=== PATIENT | male | born 1975 | race Caucasian/White ===

== ENCOUNTER 2018-04-16 22:23 | Emergency (ER) | payer OTHER ==
[2018-04-16] MEDS ORDERED: NS 1,000 ML IV ONE (23:06)
[2018-04-16 23:25] LABS: PLATELET COUNT 200 10^3/uL (150-400)
[2018-04-16] MEDS ORDERED: HYDROmorphONE/DILAUDID 1 MG/ML INJ ONE (23:39)
[2018-04-16] MEDS ORDERED: HYDROmorphONE/DILAUDID 2 MG/ML INJ IVP ONE (23:51)
--- NOTE | 2018-04-17 02:38 | EDPHY ---
H & P Stated Complaint: RUQ abd pain and vomiting Time Seen by Provider: 04/16/18 22:50 HPI/ROS: Chief Complaint: Abdominal pain HPI: 43-year-old male presenting with worsening right upper quadrant abdominal pain for the last 2 days. He has had some nausea vomiting. Did take some Pepto -Bismol with no relief. Did have some black stools after taking the Pepto- Bismol. No fevers or chills. Does not have a history of similar episodes in the past. No chest pain or shortness of breath. Pain is about a 6/10. There are no aggravating or alleviating factors. ROS: 10 systems were reviewed and were negative except those elements noted in the HPI. Social History: No smoking Family History: non-contributory Physical Exam: Gen: Awake, Alert, No Distress HEENT: Nose: no rhinorrhea Eyes: PERRLA, EOMI Mouth: Moist mucosa Neck: Supple, no JVD Chest: nontender, lungs clear to auscultation Heart: S1, S2 normal, no murmur Abd: Soft, moderate epigastric with moderate right upper quadrant tenderness, no guarding Back: no CVA tenderness, no midline tenderness Ext: no edema, non-tender Skin: no rash Neuro: CN II-XII intact, Sensation grossly intact, Strength 5/5 in bilateral upper and lower extremities - Personal History Current Tetanus/Diphtheria Vaccine: Yes Current Tetanus Diphtheria and Acellular Pertussis (TDAP): Yes - Medical/Surgical History Hx Asthma: No Hx Chronic Respiratory Disease: No Hx Diabetes: No Hx Cardiac Disease: No Hx Renal Disease: No Hx Cirrhosis: No Hx Alcoholism: No Hx HIV/AIDS: No Hx Splenectomy or Spleen Trauma: No Other PMH: HTN - Social History Smoking Status: Current every day smoker Constitutional: Initial Vital Signs Temperature (C) 37.2 C 04/16/18 22:28 Heart Rate 73 04/16/18 22:28 Respiratory Rate 16 04/16/18 22:28 Blood Pressure 172/110 H 04/16/18 22:28 O2 Sat (%) 95 04/16/18 22:28 O2 Delivery Mode Nasal Cannula O2 (L/minute) 2 Allergies/Adverse Reactions: No Known Allergies Allergy (Unverified 04/16/18 22:30) Home Medications: Medication Instructions Recorded Oroxadin 04/16/18 Pantoprazole Sodium 04/16/18 Zyloprim 04/16/18 Medical Decision Making - Diagnostics Imaging Results: Right upper quadrant ultrasound is suggestive of pancreatitis with peripancreatic fluid adjacent to the pancreatic head with hepatomegaly with fatty infiltration. Study interpreted by Dr. Jones, dressed Radiology. ED Course/Re-evaluation: 43-year-old male with epigastric abdominal pain. Modest elevation in his lipase. Remainder of his laboratory evaluations unremarkable. Ultrasound consistent with pancreatitis. Patient is improved after IV analgesia and antiemetics and fluids. Will discharge with a bland diet, follow up with primary care. He did report some melena however I think this is secondary to the Pepto-Bismol. - Data Points Laboratory Results: Laboratory Results 04/16/18 23:15 04/16/18 23:15 04/16/18 04/16/18 23:15 23:15 WBC 9.87 10^3/uL H 10^3/uL (3.80-9.50) RBC 4.94 10^6/uL 10^6/uL (4.40-6.38) Hgb 15.4 g/dL g/dL (13.7-17.5) Hct 42.8 % % (40.0-51.0) MCV 86.6 fL fL (81.5-99.8) MCH 31.2 pg pg (27.9-34.1) MCHC 36.0 g/dL g/dL (32.4-36.7) RDW 12.6 % % (11.5-15.2) Plt Count 200 10^3/uL 10^3/uL (150-400) MPV 10.3 fL fL (8.7-11.7) Neut % (Auto) 61.2 % % (39.3-74.2) Lymph % (Auto) 27.3 % % (15.0-45.0) [place] % (Auto) 8.2 % % (4.5-13.0) Eos % (Auto) 2.5 % % (0.6-7.6) Baso % (Auto) 0.4 % % (0.3-1.7) Nucleat RBC Rel Count 0.0 % % (0.0-0.2) Absolute Neuts (auto) 6.04 10^3/uL 10^3/uL (1.70-6.50) Absolute Lymphs (auto) 2.69 10^3/uL 10^3/uL (1.00-3.00) Absolute Monos (auto) 0.81 10^3/uL H 10^3/uL (0.30-0.80) Absolute Eos (auto) 0.25 10^3/uL 10^3/uL (0.03-0.40) Absolute Basos (auto) 0.04 10^3/uL 10^3/uL (0.02-0.10) Absolute Nucleated RBC 0.00 10^3/uL 10^3/uL (0-0.01) Immature Gran % 0.4 % % (0.0-1.1) Immature Gran # 0.04 10^3/uL 10^3/uL (0.00-0.10) Sodium 141 mEq/L mEq/L (135-145) Potassium 3.8 mEq/L mEq/L (3.5-5.2) Chloride 104 mEq/L mEq/L (97-110) Carbon Dioxide 25 mEq/l mEq/l (22-31) Anion Gap 12 mEq/L mEq/L (6-14) BUN 13 mg/dL mg/dL (7-23) Creatinine 0.8 mg/dL mg/dL (0.7-1.3) Estimated GFR > 60 Glucose 92 mg/dL mg/dL (70-100) Calcium 9.5 mg/dL mg/dL (8.5-10.4) Total Bilirubin 0.9 mg/dL mg/dL (0.1-1.4) AST 50 IU/L IU/L (17-59) ALT 70 IU/L IU/L (21-72) Alkaline Phosphatase 60 IU/L IU/L (38-126) Total Protein 7.4 g/dL g/dL (6.3-8.2) Albumin 4.5 g/dL g/dL (3.5-5.0) Lipase 421 IU/L H IU/L (23-300) Medications Given: Discontinued Medications Hydromorphone HCl (Dilaudid) 0.5 mg IVP EDNOW ONE Stop: 04/16/18 23:52 Last Admin: 04/16/18 23:52 Dose: 0.5 mg Sodium Chloride (Ns) 1,000 mls @ 0 mls/hr IV ONCE ONE; Wide Open PRN Reason: Protocol Stop: 04/16/18 23:07 Last Admin: 04/16/18 23:13 Dose: 1,000 mls Departure - Departure Disposition: Home, Routine, Self-Care Clinical Impression: Pancreatitis Condition: Good Instructions: Pancreatitis (ED), Diet for Stomach Ulcers and Gastritis (ED) Additional Instructions: May take Tylenol every 4-6 hours as needed for pain. I would avoid ibuprofen. Follow up with Gastroenterology in 3-4 days if symptoms are not improving. Please discontinue using Pepto-Bismol. If he of continued to have black stools in 3-4 days follow up with Gastroenterology or return to the emergency department. Return to the emergency department for lightheadedness, fainting, uncontrolled abdominal pain, fevers, chills, or any other concerns. Referrals: Maury Strong MD [Medical Doctor] - As per Instructions
[2018-04-17] MEDS ORDERED: HYDROCODONE/APAP 5/325 TAB PO ONE (02:40)
[2018-04-17 02:42] VITALS: BP 134/94
== END 2018-04-17 02:52 | disposition home or self-care (01) ==
DX: K85.90 Acute pancreatitis without necrosis or infection, unspecified (principal)
CPT/HCPCS: 96374; J1170